=== PATIENT | female | born 1980 | race Caucasian/White ===

== ENCOUNTER 2019-12-06 09:57 | Outpatient (REF) | payer OTHER, SELFPAY | END 2019-12-06 09:58 | disposition home or self-care (01) | LOC: HO.LAB 09:57 | PROVIDERS: Visit Provider Internal Medicine | DX: Z20.828 Contact with and (suspected) exposure to other viral communicable diseases (principal) | CPT/HCPCS: 87635 ==

== ENCOUNTER 2019-12-14 07:51 | Outpatient (REF) | payer OTHER, SELFPAY | END 2019-12-14 07:52 | disposition home or self-care (01) | LOC: HO.LAB 07:51 | PROVIDERS: Visit Provider Internal Medicine | DX: Z20.828 Contact with and (suspected) exposure to other viral communicable diseases (principal) | CPT/HCPCS: C9803; U0003 ==

== ENCOUNTER 2020-08-24 10:28 | Emergency (ER) | payer OTHER, SELFPAY ==
--- NOTE | ~2020-08-24 | XR_ITS ---
EXAMINATION: XR CHEST CLINICAL INFORMATION: Chest pain COMPARISON: Chest x-ray 02/27/2015 TECHNIQUE: Frontal view of the chest was obtained. FINDINGS: The lungs are well-expanded and clear. The heart size and pulmonary vascularity is normal. No gross bony abnormality seen. XR/XR chest 1V IMPRESSION: Unremarkable chest exam.
[2020-08-24 10:50] VITALS: PULSE 69; RESP 16; TEMP 36.9; O2SAT 98; BMI 30.4
--- NOTE | 2020-08-24 11:00 | ED.CHESTPAIN ---
HPI - Chest Pain General Chief Complaint: Chest Pain Stated Complaint: Chest Pain Time Seen by Provider: 08/24/20 10:59 Source: patient Mode of arrival: ambulatory Limitations: no limitations History of Present Illness HPI narrative: 39 yo female no sig PMH not on OCPs here with L sided sharp chest pain that started around 7am this morning worse with movements, talking, deep breaths no prior episodes of this in the past MD complaint: chest pain Onset (ago): hour(s) (7am today) Timing of current episode: other (much improved) Onset: during rest Pain radiation: none Severity: moderate Quality: sharp Relieving factors: nothing Exacerbating factors: inspiration, palpation and movement Treatment prior to arrival: none Related Data Previous Rx's Medication Instructions Recorded ibuprofen 600 mg PO Q6H PRN #30 tab 08/24/20 Allergies Allergy/AdvReac Type Severity Reaction Status Date / Time amitriptyline [From ELAVIL] Allergy Intermediate SWELLING Unverified 10/27/19 15:58 Review of Systems Review of Systems: Constitutional : No Weight loss, No Fever, No Chills ENT/Mouth : No sore throat, No Rhinorrhea Eyes: No Eye Pain, No Swelling Cardiovascular : pos Chest Pain, no SOB, no Dyspnea on Exertion, No Orthopnea, No Edema, No Palpitations Respiratory : No Cough, No Sputum Gastrointestinal : no Nausea, No Vomiting, No Diarrhea, No abdominal Pain, No Hematochezia, No Melena Genitourinary : No Dysuria, No Urinary Frequency Musculoskeletal : No joint pain, No Myalgias, No Joint Swelling Skin : No Skin Lesions, No rash Neuro : No Weakness, No Numbness, No Dizziness, No Headache Psych : No Anxiety/Panic, No Depression Heme/Lymph: No Bruising, No Lymphadenopathy Endocrine : No Polyuria, No Polydipsia All other systems reviewed and are negative PMFSH Past Medical History Attestation statement: The following information was validated with the patient. Medical History COVID-19 Social History Social History (Updated 08/24/20 @ 11:26 by Jayleen Emmanuel DO) Alcohol intake: never Patient Tobacco Use Status: Never used Tobacco Advance Directives: No Advance Directives Information Provided: Yes Physical Exam Vital Signs: Vital Signs: Last Vital Signs Temp 98.2 F 08/24/20 13:29 Pulse 64 08/24/20 13:29 Resp 14 08/24/20 13:29 BP 107/59 L 08/24/20 13:29 Pulse Ox 98 08/24/20 13:29 Body Mass Index 30.4 Appearance: Alert. Oriented X3. No acute distress. Eyes: Pupils equal, round and reactive to light. ENT: Pharynx normal. Neck: Normal inspection. Neck supple. CVS: Normal heart rate and rhythm. Pulses normal. Chest: ttp along L sternal border Respiratory: No respiratory distress. Breath sounds normal. Abdomen: Soft and non-tender. Skin: Skin warm and dry. Normal skin color. Normal skin turgor. Extremities: No lower extremity edema. No calf ttp Neuro: Oriented X 3. No motor deficit. No sensory deficit. Course Course Course Narrative: repeat trop negative stable for DC MDM - Chest Pain MDM Narrative Medical decision making narrative: 39 yo female no sig PMH not on OCPs here with L sided sharp chest pain that started around 7am this morning worse with movements, talking, deep breaths no prior episodes of this in the past at this time she is PERC negative, HEART score 0, seems MSK in nature - labs, troponin x 1, CXR, EKG - dispo per results and findings. Lab Data Result diagrams: 08/24/20 11:21 08/24/20 11:21 Labs: Lab Results 08/24/20 08/24/20 08/24/20 Range/Units 11:21 11:21 11:21 WBC 6.8 (4.8-10.8) X10*3/uL RBC 5.36 (4.20-5.50) X10*6/uL Hgb 10.8 L (12.0-16.0) g/dl Hct 36.7 L (37-47) % MCV 68.5 L (80-98) fL MCH 20.1 L (27.0-33.0) pg MCHC 29.4 L (31.0-35.0) g/dl RDW 18.0 H (11.0-16.0) % Plt Count 204 (160-400) X10*3/uL MPV Not Reportable Immature Gran % (Auto) 0.3 (0.0-0.4) % Neut % (Auto) 67.0 (45-73) % Lymph % (Auto) 25.3 (20-40) % [place] % (Auto) 6.2 (2-11) % Eos % (Auto) 0.9 (0-4) % Baso % (Auto) 0.3 (0-2) % Lymph # (Auto) 1.7 (1.2-4.9) X10*3/uL [place] # (Auto) 0.4 (0.1-1.2) X10*3/uL Eos # (Auto) 0.1 (0.0-0.4) X10*3/uL Baso # (Auto) 0.0 (0.0-0.2) X10*3/uL Abs Immat Gran (auto) 0.02 (0.00-0.03) X10*3/uL Absolute Neuts (auto) 4.5 (2.0-8.3) X10*3/uL Absolute Nucleated RBC 0.000 (0.0-0.012) X10*3/uL Nucleated RBC % (auto) 0.0 (0.0-0.2) /100WBC D-Dimer NG/ML Sodium 139 (135-145) mmol/L Potassium 3.8 (3.3-5.1) mmol/L Chloride 108 (96-108) mmol/L Carbon Dioxide 26 (22-29) mmol/L Anion Gap 9 L (12-20) BUN 16 (9-16) mg/dL Creatinine 0.82 (0.5-1.4) mg/dL Estim Creat Clear Calc 98.9 Estimated GFR > 60 Random Glucose 84 (60-115) mg/dL Calcium 9.0 (8.4-10.2) mg/dL Magnesium 2.1 (1.6-2.6) mg/dL Total Bilirubin 0.5 (0.0-1.0) mg/dL Direct Bilirubin 0.2 (0.0-0.5) mg/dL AST 12 (5-31) U/L ALT 9 (0-31) U/L Alkaline Phosphatase 70 (39-117) U/L Troponin I High Sens < 3.5 (<3.5-17.0) ng/L Total Protein 7.5 (6.5-8.0) g/dL Albumin 4.2 (3.5-5.0) g/dL Lipase 16 (8-78) U/L 08/24/20 08/24/20 Range/Units 11:50 13:34 WBC (4.8-10.8) X10*3/uL RBC (4.20-5.50) X10*6/uL Hgb (12.0-16.0) g/dl Hct (37-47) % MCV (80-98) fL MCH (27.0-33.0) pg MCHC (31.0-35.0) g/dl RDW (11.0-16.0) % Plt Count (160-400) X10*3/uL MPV Immature Gran % (Auto) (0.0-0.4) % Neut % (Auto) (45-73) % Lymph % (Auto) (20-40) % [place] % (Auto) (2-11) % Eos % (Auto) (0-4) % Baso % (Auto) (0-2) % Lymph # (Auto) (1.2-4.9) X10*3/uL [place] # (Auto) (0.1-1.2) X10*3/uL Eos # (Auto) (0.0-0.4) X10*3/uL Baso # (Auto) (0.0-0.2) X10*3/uL Abs Immat Gran (auto) (0.00-0.03) X10*3/uL Absolute Neuts (auto) (2.0-8.3) X10*3/uL Absolute Nucleated RBC (0.0-0.012) X10*3/uL Nucleated RBC % (auto) (0.0-0.2) /100WBC D-Dimer < 200 NG/ML Sodium (135-145) mmol/L Potassium (3.3-5.1) mmol/L Chloride (96-108) mmol/L Carbon Dioxide (22-29) mmol/L Anion Gap (12-20) BUN (9-16) mg/dL Creatinine (0.5-1.4) mg/dL Estim Creat Clear Calc Estimated GFR Random Glucose (60-115) mg/dL Calcium (8.4-10.2) mg/dL Magnesium (1.6-2.6) mg/dL Total Bilirubin (0.0-1.0) mg/dL Direct Bilirubin (0.0-0.5) mg/dL AST (5-31) U/L ALT (0-31) U/L Alkaline Phosphatase (39-117) U/L Troponin I High Sens < 3.5 (<3.5-17.0) ng/L Total Protein (6.5-8.0) g/dL Albumin (3.5-5.0) g/dL Lipase (8-78) U/L ECG Data ECG #1: Attestation: I personally reviewed and interpreted this ECG as follows: ECG interpretation date: 08/24/20 ECG interpretation time: 11:51 Interpretation: Rate: 65 Rhythm: NSR [place]: normal Normal P waves. Normal CELIA. Normal QRS complex. ST T wave : inverted t waves V1-V3, no GILA qTC: normal prior studies: no acute ischemia The study has been interpreted contemporaneously by me. . Discharge Plan Discharge Clinical Impression: Chest pain Patient Disposition: Home, Self-Care Instructions: Chest Pain (ED), Costochondritis (ED) Additional Instructions: return to ED for any worsening symptoms or concerns Prescriptions: New ibuprofen 600 mg tablet 600 mg PO Q6H PRN (Reason: pain) Qty: 30 RF: 0 Referrals: Chuyita Love MD [Primary Care Provider] - 2 days (if not better) Stand Alone Forms: Work/School Release
--- NOTE | 2020-08-24 11:07 | ECG_ITS ---
Test Reason : CHEST PAIN Blood Pressure : / mmHG Vent. Rate : 065 BPM Atrial Rate : 065 BPM P-R Int : 168 ms QRS Dur : 080 ms QT Int : 394 ms P-R-T Axes : 022 040 010 degrees QTc Int : 409 ms Normal sinus rhythm Anterior T wave inversions - consider ischemia Abnormal ECG No previous ECGs available Referred By: Jayleen Emmanuel Electronically Signed By:Tal Wilson
[2020-08-24 11:27] LABS: MANUAL DIFF FLAG NO
[2020-08-24 11:31] LABS: Basophils Percent Auto 0.3 % (0-2); Eosinophils Absolute Auto 0.1 X10*3/uL (0.0-0.4); Eosinophils Percent Auto 0.9 % (0-4); Hematocrit 36.7 % (37-47); Hemoglobin 10.8 g/dl (12.0-16.0); Imm Gran Abs Auto 0.02 X10*3/uL (0.00-0.03); Imm Gran Pct Auto 0.3 % (0.0-0.4); Lymphocytes Absolute Auto 1.7 X10*3/uL (1.2-4.9); Lymphocytes Percent Auto 25.3 % (20-40); Mean Corpuscular HGB Conc 29.4 g/dl (31.0-35.0); Mean Corpuscular Hemoglobin 20.1 pg (27.0-33.0); Mean Corpuscular Volume 68.5 fL (80-98); Monocytes Absolute Auto 0.4 X10*3/uL (0.1-1.2); Monocytes Percent Auto 6.2 % (2-11); Neutrophils Absolute Auto 4.5 X10*3/uL (2.0-8.3); Platelet Count 204 X10*3/uL (160-400); Red Blood Count 5.36 X10*6/uL (4.20-5.50); White Blood Count 6.8 X10*3/uL (4.8-10.8)
[2020-08-24 11:43] VITALS: BP 97/61; PULSE 65; RESP 12; TEMP 36.7; O2SAT 98
[2020-08-24 11:55] LABS: Alanine Aminotransferase 9 U/L (0-31); Albumin Level 4.2 g/dL (3.5-5.0); Alkaline Phosphatase 70 U/L (39-117); Anion Gap 9 (12-20); Aspartate Amino Transferase 12 U/L (5-31); Bilirubin Direct 0.2 mg/dL (0.0-0.5); Bilirubin Total 0.5 mg/dL (0.0-1.0); Blood Urea Nitrogen 16 mg/dL (9-16); Carbon Dioxide 26 mmol/L (22-29); Chloride 108 mmol/L (96-108); Creatinine Clr Calc Pharmacy 98.9; Estimated Glomerular Filt Rate > 60; Glucose Random 84 mg/dL (60-115); Lipase 16 U/L (8-78); Magnesium 2.1 mg/dL (1.6-2.6); Potassium 3.8 mmol/L (3.3-5.1); Sodium 139 mmol/L (135-145); Total Protein 7.5 g/dL (6.5-8.0)
[2020-08-24 11:56] LABS: Troponin-I High Sensitivity < 3.5 ng/L (<3.5-17.0)
[2020-08-24 12:09] LABS: D Dimer < 200 NG/ML
[2020-08-24 13:29] VITALS: BP 107/59; PULSE 64; RESP 14; TEMP 36.8; O2SAT 98
[2020-08-24 14:12] LABS: Troponin-I High Sensitivity < 3.5 ng/L (<3.5-17.0)
== END 2020-08-24 14:57 | disposition home or self-care (01) ==
PROVIDERS: Emergency Provider Emergency Medicine; PCP Internal Medicine
DX: R07.9 Chest pain, unspecified (principal)
CPT/HCPCS: 36415; 71045; 80048; 80076; 83690; 83735; 84484; 85025; 85379; 93005; 99284

== ENCOUNTER 2021-03-17 17:34 | Emergency (ER) | payer OTHER, SELFPAY ==
--- NOTE | ~2021-03-17 | XR_ITS ---
EXAMINATION: XR PORTABLE CHEST CLINICAL INFORMATION: Chest pain. COMPARISON: 08/24/2020 TECHNIQUE: AP portable upright view of the chest FINDINGS: Lungs are clear. No consolidation, pneumothorax, or pleural effusion. Cardiac and mediastinal contours are normal. Pulmonary vasculature is unremarkable. Osseous structures are unremarkable. XR/XR chest 1V IMPRESSION: No acute cardiopulmonary findings
[2021-03-17 17:37] VITALS: BP 131/52; PULSE 70; RESP 18; TEMP 36.9; O2SAT 99; BMI 30.7
--- NOTE | 2021-03-17 17:42 | ECG_ITS ---
Test Reason : DYSPNEA Blood Pressure : / mmHG Vent. Rate : 078 BPM Atrial Rate : 078 BPM P-R Int : 160 ms QRS Dur : 084 ms QT Int : 376 ms P-R-T Axes : 061 069 033 degrees QTc Int : 428 ms Normal sinus rhythm T wave abnormality, consider anterior ischemia Abnormal ECG When compared with ECG of 24-AUG-2020 11:41, No significant change was found Referred By: Generic ED Physician Electronically Signed By:Tal Wilson
--- NOTE | 2021-03-17 18:13 | ED_ITS ---
HPI - Chest Pain General Chief Complaint: Dyspnea Stated Complaint: [facility] sent pt over Time Seen by Provider: 03/17/21 18:01 History of Present Illness HPI narrative: 40-year-old female presents today with coughing upper respiratory symptoms that is been ongoing for approximately 1 week. Patient had coded approximately 1 month ago. No fever no chills no diaphoresis. Been on steroid and also on a Z- Mikael right now. Complaining of some chest pain as mid chest. Patient had an EKG done at the urgent care found that patient had T-wave inversions. Patient was sent to the emergency department for further evaluation. No history of diabetes, hypertension, high cholesterol. No history of smoking. Never had a heart attack. No family history of coronary artery disease. No leg swelling. Not on control. No history of blood clots in the past. No history of cancer. The pain has been constant since yesterday. Not associated with shortness of breath that is new. Not associated with diaphoresis. Related Data Previous Rx's Medication Instructions Recorded ibuprofen 600 mg tablet 600 mg PO Q6H PRN #30 tab 08/24/20 Allergies Allergy/AdvReac Type Severity Reaction Status Date / Time amitriptyline [From Allergy Intermediate SWELLING Unverified 10/27/19 15:58 ELAVIL] Review of Systems Verdana 4l Review of Systems: Verdana 4d No fever no chills No new Verdana 4d shortness of breath Positive cough upper respiratory symptoms Previous history of COVID about a month ago All system reviewed otherwise negative Verdana 4d Yes all other systems are reviewed and are negative [facility] Past Medical History Medical History COVID-19 Social History Social History (Updated 08/24/20 @ 11:26 by Jayleen Emmanuel DO) Alcohol intake: never Patient Tobacco Use Status: Never used Tobacco Use of substances other than those prescribed or required for medical reasons: No Advance Directives: No Advance Directives Information Provided: No Patient : No Physical Exam Verdana 4l Vital Signs: Verdana 4d Verdana 4d Vital Signs: Verdana 4d Verdana 4Bd Last Vital Signs Verdana 4d [employer]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 Oriented X3. No acute distress. Eyes: Pupils equal, round and reactive to light. ENT: Pharynx normal. Neck: Normal inspection. Neck supple. No lymph nodes noted. No crepitus CVS: Normal heart rate and rhythm. Pulses normal. Normal S1 and S2 Respiratory: No respiratory distress. Breath sounds normal. No Wheezing. No rales Abdomen: Soft and nontender. No rigidity. No distention. good BS x4 Skin: Skin warm and dry. Normal skin color. Normal skin turgor. Extremities: No lower extremity edema. Neurovascular intact to all extremities. No Lacerations. No Rash Neuro: Oriented X 3. No motor deficit. No sensory deficit. Moving all extermities. No slurred speech MDM - Chest Pain MDM Narrative Medical decision making narrative: Patient's EKG showed a sinus pattern heart rate is 80 TX QRS QTC within normal limits there is T-wave inversion noted in the anterior lead. This is old compared to an EKG about a month ago. Patient's chest pain is atypical for ACS. Has no cardiac risk factor he is 40 years old. The pain has been constant since yesterday. Will get 1 set of cardiac enzymes are negative ACS is unlikely. Patient's heart score is less than 3. Chest x-ray pending. A COVID test was not done as patient had positive COVID only a month ago. She did receive a coronavirus vaccine. Patient's troponin was negative. Patient's sugar was 170. However patient stated that she just had a sandwich and also a few sips of soda. Question secondary to that. Will have patient follow-up on an outpatient basis. In stable condition. Medical Records Data Attestation: I reviewed the patient's medical records. Lab Data Attestation: I reviewed the patient's lab results. Result diagrams: 03/17/21 19:22 03/17/21 19:22 Labs: Lab Results 03/17/21 03/17/21 03/17/21 Range/Units 19:22 19:22 19:22 WBC 9.1 (4.8-10.8) X10*3/uL RBC 4.98 (4.20-5.50) X10*6/uL Hgb 10.5 L (12.0-16.0) g/dl Hct 34.2 L (37.0-47.0) % MCV 68.7 L (80.0-98.0) fL MCH 21.1 L (27.0-33.0) pg MCHC 30.7 L (31.0-35.0) g/dl RDW 16.6 H (11.0-16.0) % Plt Count 217 (160-400) X10*3/uL MPV 11.2 (9.4-12.3) fL Absolute Nucleated RBC 0.000 (0.0-0.012) X10*3/uL Nucleated RBC % (auto) 0.0 (0.0-0.2) /100WBC Sodium 139 (135-145) mmol/L Potassium 3.7 (3.3-5.1) mmol/L Chloride 107 (96-108) mmol/L Carbon Dioxide 25 (22-29) mmol/L Anion Gap 11 L (12-20) BUN 13 (9-16) mg/dL Creatinine 0.87 (0.5-1.4) mg/dL Estim Creat Clear Calc 92.8 Estimated GFR > 60 Random Glucose 179 H (60-115) mg/dL Calcium 8.8 (8.4-10.2) mg/dL Troponin I High Sens < 3.5 (<3.5-17.0) ng/L Discharge Plan Discharge Clinical Impression: Bronchitis Patient Disposition: Home, Self-Care Instructions: Acute Bronchitis (ED) Prescriptions: No Action ibuprofen 600 mg tablet 600 mg PO Q6H PRN (Reason: pain) Qty: 30 0RF Referrals: Chuyita Love MD [Primary Care Provider] - 2 days
[2021-03-17 18:14] VITALS: BP 120/57; PULSE 80; RESP 16; TEMP 37; O2SAT 96
--- NOTE | 2021-03-17 19:20 | PC.NURSE ---
Assumed care of pt. Pt resting, in NAD, resps even and non-labored. Full workup still pending
[2021-03-17 19:36] VITALS: BP 114/63; PULSE 79; RESP 18; TEMP 36.9; O2SAT 97
[2021-03-17 19:37] LABS: Hematocrit 34.2 % (37.0-47.0); Hemoglobin 10.5 g/dl (12.0-16.0); Mean Corpuscular HGB Conc 30.7 g/dl (31.0-35.0); Mean Corpuscular Hemoglobin 21.1 pg (27.0-33.0); Mean Corpuscular Volume 68.7 fL (80.0-98.0); Mean Platelet Volume 11.2 fL (9.4-12.3); Platelet Count 217 X10*3/uL (160-400); Red Blood Count 4.98 X10*6/uL (4.20-5.50); Red Cell Distribution Width 16.6 % (11.0-16.0); White Blood Count 9.1 X10*3/uL (4.8-10.8)
[2021-03-17 19:40] LABS: Anion Gap 11 (12-20); Blood Urea Nitrogen 13 mg/dL (9-16); Calcium 8.8 mg/dL (8.4-10.2); Carbon Dioxide 25 mmol/L (22-29); Chloride 107 mmol/L (96-108); Creatinine Clr Calc Pharmacy 92.8; Estimated Glomerular Filt Rate > 60; Glucose Random 179 mg/dL (60-115); Potassium 3.7 mmol/L (3.3-5.1); Sodium 139 mmol/L (135-145)
[2021-03-17 19:45] LABS: Troponin-I High Sensitivity < 3.5 ng/L (<3.5-17.0)
== END 2021-03-17 20:34 | disposition home or self-care (01) ==
PROVIDERS: Emergency Provider Emergency Medicine Emergency Medical Services; PCP Internal Medicine
DX: J40 Bronchitis, not specified as acute or chronic (principal); R06.02 Shortness of breath; Z79.899 Other long term (current) drug therapy
CPT/HCPCS: 36415; 71045; 80048; 84484; 85027; 93005; 99284

== ENCOUNTER 2021-08-26 10:56 | Outpatient (REF) | payer OTHER, SELFPAY ==
[2021-08-26 14:00] LABS: SCAN SMEAR FLAG 1
[2021-08-26 14:02] LABS: Basophils Percent Auto 0.3 % (0-2); Eosinophils Absolute Auto 0.1 X10*3/uL (0.0-0.4); Eosinophils Percent Auto 1.1 % (0-4); Hematocrit 37.3 % (37.0-47.0); Hemoglobin 10.9 g/dl (12.0-16.0); Imm Gran Abs Auto 0.01 X10*3/uL (0.00-0.03); Imm Gran Pct Auto 0.2 % (0.0-0.4); Lymphocytes Absolute Auto 1.4 X10*3/uL (1.2-4.9); Lymphocytes Percent Auto 22.2 % (20-40); Mean Corpuscular HGB Conc 29.2 g/dl (31.0-35.0); Mean Corpuscular Volume 68.4 fL (80.0-98.0); Mean Platelet Volume 11.7 fL (9.4-12.3); Monocytes Absolute Auto 0.4 X10*3/uL (0.1-1.2); Monocytes Percent Auto 5.6 % (2-11); Neutrophils Absolute Auto 4.6 x10*3/uL (2.0-8.3); Neutrophils Percent Auto 70.6 % (45-73); Platelet Count 220 X10*3/uL (160-400); Red Blood Count 5.45 X10*6/uL (4.20-5.50); Red Cell Distribution Width 17.7 % (11.0-16.0); White Blood Count 6.5 X10*3/uL (4.8-10.8)
[2021-08-26 14:07] LABS: C Reactive Protein 0.26 mg/dL (< or = 0.50)
[2021-08-26 14:30] LABS: MANUAL DIFF FLAG NO; PLT ABN DIST 1
[2021-08-26 14:46] LABS: TSH reflex Free T4 1.34 uIU/mL (0.32-4.0)
[2021-08-26 14:58] LABS: Erythrocyte Sedimentation Rate 6 MM/HR (0-20)
== END 2021-08-26 10:57 | disposition home or self-care (01) ==
LOC: HO.10HDL 10:56
PROVIDERS: Visit Provider Internal Medicine Rheumatology
DX: M79.7 Fibromyalgia (principal); F41.9 Anxiety disorder, unspecified; R20.0 Anesthesia of skin; F32.A Depression, unspecified; R63.5 Abnormal weight gain; Z79.899 Other long term (current) drug therapy
CPT/HCPCS: 36415; 84443; 85025; 85652; 86140; 99212

== ENCOUNTER 2022-08-28 13:34 | Emergency (ER) | payer OTHER, SELFPAY ==
--- NOTE | ~2022-08-28 | CT_ITS ---
EXAMINATION: CT CERVICAL SPINE WITHOUT CONTRAST CLINICAL INFORMATION: Trauma, pain. COMPARISON: No similar priors. TECHNIQUE: Contiguous axial imaging was performed of the cervical spine without intravenous administration of contrast. Coronal and sagittal reformats were obtained at the acquisition workstation. This CT examination was performed using dose optimization techniques as appropriate, variously including the following: *Automated exposure control *Adjustment of mA and/or kV according to patient size (this includes techniques or standardized protocols for targeted exams where dose is matched to indication/reason for exam; i.e. extremities or head) *Use of iterative reconstruction technique DLP: 337 mGy-cm FINDINGS: The atlantooccipital and atlantoaxial articulations remain well aligned. Straightening of the normal cervical lordosis. Otherwise, there is anatomic alignment of the vertebral bodies and posterior elements. No evidence of acute fracture or subluxation. Mild multilevel cervical spondylosis. There is no prevertebral soft tissue swelling. The thyroid gland and remaining cervical soft tissues are normal in appearance. The lung apices demonstrate no abnormalities. CT/CT cervical spine wo IV con IMPRESSION: No acute cervical spinal fracture or traumatic subluxation. Mild multilevel cervical spondylosis.
--- NOTE | ~2022-08-28 | CT_ITS ---
EXAMINATION: CT HEAD WITHOUT CONTRAST CLINICAL INFORMATION: Head trauma. COMPARISON: 04/22/2008 TECHNIQUE: Contiguous axial imaging was performed from the skull base to vertex without intravenous administration of contrast. This CT examination was performed using dose optimization techniques as appropriate, variously including the following: *Automated exposure control *Adjustment of mA and/or kV according to patient size (this includes techniques or standardized protocols for targeted exams where dose is matched to indication/reason for exam; i.e. extremities or head) *Use of iterative reconstruction technique DLP: 620 mGy-cm FINDINGS: There is no evidence of acute intracranial hemorrhage or territorial infarction. No mass effect or midline shift is seen. Spann to white matter differentiation is well preserved. No extra-axial fluid collections are identified. No hydrocephalus. The calvarium is intact. The mastoid air cells and visualized portions of the paranasal sinuses are well aerated. CT/CT head/brain wo IV con IMPRESSION: No acute intracranial pathology.
[2022-08-28 14:17] VITALS: BP 109/60; PULSE 76; RESP 18; TEMP 36.6; O2SAT 98; BMI 31.3
--- NOTE | 2022-08-28 14:19 | ED_ITS ---
HPI - General Adult General Chief complaint: Head Injury Stated complaint: Lump on Head S/P Fall Time Seen by Provider: 08/28/22 14:36 Source: patient and family Mode of arrival: ambulatory Limitations: no limitations History of Present Illness HPI narrative: 41-year-old female presenting to the ER with complaints headache, blurry vision, nausea after she had an head injury with a branch while she was tending to her chickens. She reports this occurred yesterday. She did not lose consciousness and did not have any symptoms prior to the head injury. She did not actually fall down to the ground. She denies being on any blood thinners. She denies any other injuries complaints or concerns at this time. MD complaint: head injury and neck injury Onset (ago): day(s) (yesterday) Related Data Home Medications Medication Instructions Recorded Confirmed acetaminophen 500 mg tablet 500 mg PO Q6H PRN 08/26/21 08/26/21 (Tylenol Extra Strength) cetirizine 10 mg capsule (All Day 10 mg PO DAILY 08/26/21 08/26/21 Allergy (cetirizine)) cholecalciferol (vitamin D3) 25 25 mcg PO DAILY 08/26/21 08/26/21 mcg (1,000 unit) capsule ferrous sulfate 325 mg (65 mg 325 mg PO DAILY 08/26/21 08/26/21 iron) tablet fluticasone 100 mcg-salmeterol 50 1 inh inhalation Q12H 08/26/21 08/26/21 mcg/dose blistr powdr for inhalation (Advair Diskus) fluticasone propionate 50 2 spray intranasal DAILY 08/26/21 08/26/21 mcg/actuation nasal spray,suspension (Allergy Relief (fluticasone)) ibuprofen 800 mg tablet 800 mg PO Q8H PRN 08/26/21 08/26/21 omeprazole 20 mg capsule,delayed 20 mg PO DAILY 08/26/21 08/26/21 release pregabalin 150 mg capsule (Lyrica) 150 mg PO BID 08/26/21 08/26/21 sertraline 100 mg tablet 100 mg PO DAILY 08/26/21 08/26/21 Previous Rx's Medication Instructions Recorded acetaminophen 500 mg tablet 1,000 mg PO QID PRN fever or pain 08/28/22 (Tylenol Extra Strength) #14 tabs cyclobenzaprine 10 mg tablet 10 mg PO Q8H #14 tabs 08/28/22 ondansetron HCl 4 mg tablet 4 mg PO Q8H #14 tabs 08/28/22 Allergies Allergy/AdvReac Type Severity Reaction Status Date / Time amitriptyline [From ELAVIL] Allergy Intermediate SWELLING Verified 08/28/22 14:16 Review of Systems Review of Systems: Constitutional : No Weight loss, No Fever, No Chills, No Night Sweats, No Fatigue, No Malaise ENT/Mouth : No Hearing loss, No Ear Pain, No Nasal Congestion, No Sinus Pain, No Hoarseness, No sore throat, No Rhinorrhea, No Swallowing Difficulty Eyes: + blurry vision, No Eye Pain, No Swelling, No Redness, No Foreign Body, No Discharge, Cardiovascular : No Chest Pain, No SOB, No Dyspnea on Exertion, No Orthopnea, No Edema, No Palpitations Respiratory : No Cough, No Sputum, No Wheezing, No Smoke Exposure, No Dyspnea Gastrointestinal : + Nausea, No Vomiting, No Diarrhea, No Constipation, No abdominal Pain, No Hematochezia, No Melena Genitourinary : no irregular bleeding, No Dysuria, No Urinary Frequency, No Hematuria, No Urinary Incontinence, No Urgency, No Flank Pain, No Urinary Flow Changes, No Hesitancy Musculoskeletal : + neck pain, No joint pain, No Myalgias, No Joint Swelling Skin : No Skin Lesions, No rash Neuro : No Weakness, No Numbness, No Paresthesias, No Loss of Consciousness, No Dizziness, + Headache Status post head injury Psych : No Anxiety/Panic, No Depression, No SI/HI/AH/VH, No Social Issues, Heme/Lymph: No Bruising, No Bleeding,No Lymphadenopathy Endocrine : No Polyuria, No Polydipsia, No Temperature Intolerance Yes all other systems are reviewed and are negative [facility] Past Medical History Attestation statement: The following information was validated with the patient. Source: old records reviewed, obtained from family and nursing notes reviewed Medical History COVID-19 Social History Social History Household Members: Spouse and Family Housing: Apartment Are you a primary healthcare facility administrator to a significant other at home: No Do you presently have visiting nurse or other home services: No Alcohol intake: never Patient Tobacco Use Status: Never used Tobacco e-Cigarette/Vaping Use: Never Used Advance Directives: No service: No Current occupational status: employed Current occupation: Paraprofessional Physical Exam ED Vital Signs: Vital Signs - 24 hr 08/28/22 14:17 Temperature 97.8 F Pulse Rate 76 Respiratory Rate 18 Blood Pressure 109/60 Pulse Oximetry 98 Oxygen Delivery Method Room Air BMI result Body Mass Index 31.3 vital signs have been reviewed as normal and appeared to be correct. Blood pressure normal. Heart rate normal. Respiration rate normal. Temperature normal. Oxygen saturation normal. Appearance: Alert. Oriented X3. No acute distress. Head: patient mild ecchymoses/ soft tissue swelling to forehead area. The rest of the external exam is within normal limits no other signs of trauma.Normocephalic. Atraumatic. No Cullen signs noted. No raccoon eyes noted Eyes: PERRLA. EOMI. Conjunctiva and sclera normal. Eyelids normal. ENT: EAC normal. TM's Normal. No septal hematoma noted. No hemotympanum noted. Pharynx normal. Uvula midline. Moist mucous membranes. No lesions/ulcerations or masses noted on the tongue. Normal voice. No trismus noted. No drooling noted. No muffled voice noted. Neck: Normal inspection. Neck supple. FROM. No adenopathy. Thyroid Normal. No tracheal deviation noted. No crepitus is noted. No meningeal signs. No neck mass noted. No signs of trauma noted. Patient mild tenderness palpation to right paracervical musculature. No step-offs or deformities noted. CVS: Normal heart rate and rhythm. Heart sound normal. Pulses normal throughout. No murmurs/rales/gallops. Respiratory: No respiratory distress. Painless inspiration. Breath sounds normal. No wheezes/rales/rhonchi noted. Chest nontender. No crepitus is noted. No signs of trauma noted. No accessory muscle usage noted or decreased air movement noted. No signs of trauma. Abdomen: Soft and nontender. Bowel sounds normal in all 4 quadrants. No distention noted. No organomegaly noted. No visible injury noted. Back: No CVA tenderness. Full range of motion noted. Nontender. No signs of trauma. Patient neuro intact bilaterally and distally on all 4 extremities. Patient's reflexes intact bilaterally and distally on all 4 extremities. No rashes/lesion/induration/fluctuance or signs of infection noted. Skin: Skin warm and dry. Normal skin color. Normal skin turgor. No rashes/lesions/lacerations noted. Extremities: No lower extremity edema. No calf tenderness is noted. Extremities exhibit normal range of motion and nontender. Neuro: Oriented X 3. No motor deficit. No sensory deficit. Reflexes normal. Normal steady gait. No focal neuro deficits noted. CN's II-XII intact bilaterally? Vascular: + radial pulses/+ 2 distal pedal pulses/+2 dorsalis pedis b/l. Normal cap refill. No cyanosis noted to upper extremity nails and lower extremity toes nails. Course Course Course Narrative: This is an RME: Additional HPI, ROS, PE not included below will be deferred to primary provider. 41-year-old female presenting to the emergency department for evaluation of headache since yesterday. Patient reports that a branch struck the left side of her head yesterday. She is endorsing left-sided blurred vision double vision headache. She has been taking Tylenol, which has provided her without any relief. Patient ambulatory. No neurologic deficits on examination. Will be seen in main ER. No midline cervical spine tenderness on examination. Plan: CT head. Reevaluation(s) Reevaluation #1: CT head and neck negative for any acute processes. Patient was given nausea medication and oxycodone reports he feels much better. No additional labs or imaging indicated. Not consistent with CVA; subarachnoid hemorrhage; fractures. Patient most likely concussion. Will DC home with symptomatic treatment instructions return if any new or worsening symptoms follow up with primary care provider. Patient at bedside understand agree this plan. Medications Administered Discontinued Medications Generic Name Dose Route Start Last Admin Trade Name Freq PRN Reason Stop Dose Admin Ondansetron HCl 4 mg 08/28/22 15:00 08/28/22 15:27 Ondansetron Odt 4 Mg Tab.Rapdis TRANSLINGU 08/28/22 15:01 4 mg ONCE ONE Administration Oxycodone HCl 5 mg 08/28/22 15:00 08/28/22 15:25 Oxycodone Hcl Immed Release 5 Mg Tablet PO 08/28/22 15:01 5 mg ONCE ONE Administration Medical Decision Making Medical Decision Making [facility] Narrative: see course Differential Diagnosis Differential Diagnoses: The differential diagnosis associated with the presentation includes see course Independent Interpretation I performed an independent interpretation of an: CT Scan Interpretation: CT scan of brain / cervical spine reviewed by myself this is my independent interpretation agreeable with radiology report no acute findings Radiology Impression Discussion of test interpretation with radiology: I have reviewed the radiologist's reading. Radiologist Impression: FINDINGS: The atlantooccipital and atlantoaxial articulations remain well aligned. Straightening of the normal cervical lordosis. Otherwise, there is anatomic alignment of the vertebral bodies and posterior elements. No evidence of acute fracture or subluxation. Mild multilevel cervical spondylosis. There is no prevertebral soft tissue swelling. The thyroid gland and remaining cervical soft tissues are normal in appearance. The lung apices demonstrate no abnormalities. CT/CT cervical spine wo IV con IMPRESSION: No acute cervical spinal fracture or traumatic subluxation. Mild multilevel cervical spondylosis. FINDINGS: There is no evidence of acute intracranial hemorrhage or territorial infarction. No mass effect or midline shift is seen. Spann to white matter differentiation is well preserved. No extra-axial fluid collections are identified. No hydrocephalus. The calvarium is intact. The mastoid air cells and visualized portions of the paranasal sinuses are well aerated. ? CT/CT head/brain wo IV con IMPRESSION: No acute intracranial pathology. Independent Historian Clinical information obtained from an independent historian. History obtained from or confirmed by: Spouse External Record Review External record reviewed: Inpatient record, Office record, Outpatient record, Prior outpatient labs, Prior outpatient radiology, Primary care record and Outside ED record all prior lab/imaging /EKG and notes that are accessible in our system reviewed by myself Prescription Management I considered prescription management with: Pain Medication Discharge Plan Discharge Clinical Impression: Head injury, Concussion, Cervical strain Patient Disposition: Home, Self-Care Instructions: Cervical Strain (DC), Concussion (ED), Head Injury (ED) Prescriptions: New cyclobenzaprine 10 mg tablet 10 mg PO Q8H Qty: 14 0RF acetaminophen [Tylenol Extra Strength] 500 mg tablet 1,000 mg PO QID PRN (Reason: fever or pain) Qty: 14 0RF ondansetron HCl 4 mg tablet 4 mg PO Q8H Qty: 14 0RF No Action pregabalin [Lyrica] 150 mg capsule 150 mg PO BID ibuprofen 800 mg tablet 800 mg PO Q8H PRN acetaminophen [Tylenol Extra Strength] 500 mg tablet 500 mg PO Q6H PRN fluticasone propion-salmeterol [Advair Diskus] 100-50 mcg/dose blister with device 1 inh inhalation Q12H omeprazole 20 mg capsule,delayed release(DR/EC) 20 mg PO DAILY fluticasone propionate [Allergy Relief (fluticasone)] 50 mcg/actuation spray,suspension 2 spray intranasal DAILY Rx Instructions: administer into each nostril All Day Allergy (cetirizine) 10 mg capsule 10 mg PO DAILY sertraline 100 mg tablet 100 mg PO DAILY cholecalciferol (vitamin D3) 25 mcg (1,000 unit) capsule 25 mcg PO DAILY ferrous sulfate 325 mg (65 mg iron) tablet 325 mg PO DAILY Referrals: Chuyita Love MD [Primary Care Provider] - 2 days Stand Alone Forms: Work/School Release Interventions: ED Discharge Assessment Last Done: 08/28/22 17:37 Discharge Date/Time: 08/28/22 17:37 Print Language: Mexican
[2022-08-28] MEDS: oxyCODONE HCl Immed Release 5 MG TABLET PO (15:25)
[2022-08-28] MEDS: Ondansetron ODT 4 MG TAB.RAPDIS TRANSLINGU (15:27)
== END 2022-08-28 17:37 | disposition home or self-care (01) ==
PROVIDERS: Emergency Provider Emergency Medicine; PCP Internal Medicine
DX: S06.0X0A Concussion without loss of consciousness, initial encounter (principal); S16.1XXA Strain of muscle, fascia and tendon at neck level, initial encounter; W22.8XXA Striking against or struck by other objects, initial encounter; Y93.89 Activity, other specified; Y92.72 Chicken coop as the place of occurrence of the external cause; Y99.9 Unspecified external cause status
CPT/HCPCS: 70450; 72125; 99283; 99284

== ENCOUNTER 2023-03-25 23:43 | Emergency (ER) | payer OTHER, SELFPAY ==
--- NOTE | ~2023-03-25 | XR_ITS ---
EXAMINATION: XR CHEST CLINICAL INFORMATION: Chest pain. COMPARISON: 03/17/2021. TECHNIQUE: Frontal view of the chest was obtained. FINDINGS: No significant abnormality is noted involving the heart, lungs, mediastinum, bony thorax or soft tissues. XR/XR chest 1V IMPRESSION: Unremarkable examination.
[2023-03-25 23:49] VITALS: BP 122/80; PULSE 62; O2SAT 99
[2023-03-25 23:55] VITALS: BMI 31.1
[2023-03-26 00:32] VITALS: BP 117/69; PULSE 69; RESP 12; TEMP 36.7; O2SAT 98
--- NOTE | 2023-03-26 01:17 | ED_ITS ---
HPI - General Adult General Chief complaint: Dizziness Stated complaint: Abdominal Pain/Dizziness Time Seen by Provider: 03/26/23 00:56 History of Present Illness HPI narrative: The patient is a 42-year-old woman who started to feel unwell 4 days ago on Thursday evening when she developed a headache. She continued to have a headache on Thursday and felt run down. She took a home COVID test that was positive. The next day on Thursday she went to an urgent care where she had a confirmatory COVID test and was prescribed Paxlovid. She also developed a runny nose and sore throat and a cough. This morning (Thursday morning) she started to have chest pain and this evening she started to feel lightheaded as if he might pass out and ultimately called an ambulance tonight and was brought to the emergency room. She does not know if she has had a fever. No nausea or vomiting. She says that she feels lightheaded. She does not feel any sense of room spinning. She says the lightheadedness feels like she might pass out. She is here with her 2 teenage daughters. 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 Related Data Home Medications Medication Instructions Recorded Confirmed acetaminophen 500 mg tablet 500 mg PO Q6H PRN 08/26/21 08/26/21 (Tylenol Extra Strength) cetirizine 10 mg capsule (All Day 10 mg PO DAILY 08/26/21 08/26/21 Allergy (cetirizine)) cholecalciferol (vitamin D3) 25 25 mcg PO DAILY 08/26/21 08/26/21 mcg (1,000 unit) capsule ferrous sulfate 325 mg (65 mg 325 mg PO DAILY 08/26/21 08/26/21 iron) tablet fluticasone 100 mcg-salmeterol 50 1 inh inhalation Q12H 08/26/21 08/26/21 mcg/dose blistr powdr for inhalation (Advair Diskus) fluticasone propionate 50 2 spray intranasal DAILY 08/26/21 08/26/21 mcg/actuation nasal spray,suspension (Allergy Relief (fluticasone)) ibuprofen 800 mg tablet 800 mg PO Q8H PRN 08/26/21 08/26/21 omeprazole 20 mg capsule,delayed 20 mg PO DAILY 08/26/21 08/26/21 release pregabalin 150 mg capsule (Lyrica) 150 mg PO BID 08/26/21 08/26/21 sertraline 100 mg tablet 100 mg PO DAILY 08/26/21 08/26/21 Previous Rx's Medication Instructions Recorded acetaminophen 500 mg tablet 1,000 mg (2 x 500 mg) PO QID PRN 08/28/22 (Tylenol Extra Strength) fever or pain #14 tabs cyclobenzaprine 10 mg tablet 10 mg PO Q8H #14 tabs 08/28/22 ondansetron HCl 4 mg tablet 4 mg PO Q8H #14 tabs 08/28/22 Allergies Allergy/AdvReac Type Severity Reaction Status Date / Time amitriptyline [From ELAVIL] Allergy Intermediate SWELLING Verified 03/26/23 00:05 Review of Systems 2 Review of Systems: Yes all other systems are reviewed and are negative PMFSH Past Medical History Medical History COVID-19 Social History Social History Household Members: Spouse and Family Housing: Apartment Are you a primary director long term care to a significant other at home: No Do you presently have visiting nurse or other home services: No Alcohol intake: never Patient Tobacco Use Status: Never used Tobacco e-Cigarette/Vaping Use: Never Used Advance Directives: No Advance Directives Information Provided: Yes service: No Current occupational status: employed Current occupation: Paraprofessional Physical Exam ED Vital Signs: Vital Signs - 24 hr 03/26/23 00:32 03/26/23 04:00 Temperature 98.1 F Pulse Rate 69 60 Respiratory Rate 12 16 Blood Pressure 117/69 105/64 Pulse Oximetry 98 98 Oxygen Delivery Method Room Air Room Air BMI result Body Mass Index 31.1 Const Other: The patient is awake and alert. She looks fatigued but not acutely toxic. HENMT Other: Face is symmetrical, mucous membranes moist Eyes Other: Pupils are round equal, conjunctivae are clear, extraocular movements intact Neck Other: Neck is supple, no JVD Resp Effort & Inspection: normal respiratory effort Auscultation: clear to auscultation bilaterally Cardio Rate: regular rate Rhythm: regular rhythm Heart sounds: S1 normal heart sound present and S2 normal heart sound present GI Other: Abdomen is soft and nontender Skin Other: Skin is dry and unremarkable Neuro Other: The patient is awake and alert. She looks fatigued. Mental status is clear. Face is symmetrical. Eye movements intact. She moves her extremities symmetrically. She seems grossly neurologically intact. Extrem Other: No calf swelling or tenderness. No peripheral edema. Medications Administered Discontinued Medications Generic Name Dose Route Start Last Admin Trade Name Kelsey PRN Reason Stop Dose Admin Acetaminophen 975 mg 03/26/23 03:49 03/26/23 03:59 Acetaminophen 325 Mg Tablet PO 03/26/23 03:50 975 mg ONCE ONE Administration Ibuprofen 600 mg 03/26/23 03:49 03/26/23 03:59 Ibuprofen 600 Mg Tablet PO 03/26/23 03:50 600 mg ONCE ONE Administration Medical Decision Making Medical Decision Making [facility] Narrative: The patient is a 42-year-old female who presents with 4 days of symptoms in the setting of being COVID positive. She started Paxlovid 2 days ago. She says that she felt very lightheaded (she said dizzy originally but denies any room spinning sensations, she says that she feels lightheaded as if she might pass out). Clinically she looks well although she looks fatigued. Vital signs are unremarkable. Her daughters implies she has under a lot of stress. Your testing in the emergency room is largely reassuring. She has a negative chest x-ray. Her D-dimer is undetectable. CBC is unremarkable. She is mildly anemic but she has been mildly anemic in the past. Her metabolic panel is unremarkable. Overall the patient is presentation seems fairly benign. I suspect that her symptoms are either COVID related or may be related to the stress of being ill while having a lot of responsibility. In any event I think she is medically safe for discharge to continue her Paxlovid in isolation at home. Lab Data 03/26/23 02:39 03/26/23 02:39 Labs: Lab Results 03/26/23 Range/Units 02:39 WBC 6.5 (4.8-10.8) X10*3/uL RBC 4.95 (4.20-5.50) X10*6/uL Hgb 9.9 L (12.0-16.0) g/dl Hct 33.0 L (37.0-47.0) % MCV 66.7 L (80.0-98.0) fL MCH 20.0 L (27.0-33.0) pg MCHC 30.0 L (31.0-35.0) g/dl RDW 17.0 H (11.0-16.0) % Plt Count 184 (160-400) X10*3/uL MPV 10.7 (9.4-12.3) fL Immature Gran % (Auto) 0.2 (0.0-0.4) % Neut % (Auto) 68.4 (45-73) % Lymph % (Auto) 24.2 (20-40) % Orange % (Auto) 5.5 (2-11) % Eos % (Auto) 1.4 (0-4) % Baso % (Auto) 0.3 (0-2) % Lymph # (Auto) 1.6 (1.2-4.9) X10*3/uL Orange # (Auto) 0.4 (0.1-1.2) X10*3/uL Eos # (Auto) 0.1 (0.0-0.4) X10*3/uL Baso # (Auto) 0.0 (0.0-0.2) X10*3/uL Abs Immat Gran (auto) 0.01 (0.00-0.03) X10*3/uL Absolute Neuts (auto) 4.5 (2.0-8.3) x10*3/uL Absolute Nucleated RBC 0.000 (0.0-0.012) X10*3/uL Nucleated RBC % (auto) 0.0 (0.0-0.2) /100WBC D-Dimer High Sensitivty < 150 NG/ML Sodium 140 (135-145) mmol/L Potassium 3.7 (3.3-5.1) mmol/L Chloride 107 (96-108) mmol/L Carbon Dioxide 24 (22-29) mmol/L Anion Gap 13 (12-20) BUN 13 (9-16) mg/dL Creatinine 0.77 (0.5-1.4) mg/dL Estim Creat Clear Calc 103.4 Estimated GFR > 60 Random Glucose 104 (60-115) mg/dL Calcium 8.5 (8.4-10.2) mg/dL Total Bilirubin 0.2 (0.0-1.0) mg/dL Direct Bilirubin < 0.2 (0.0-0.5) mg/dL AST 13 (5-31) U/L ALT 15 (0-31) U/L Alkaline Phosphatase 66 (39-117) U/L Troponin I High Sens < 2.7 (<3.5-17.0) ng/L C-Reactive Protein 0.52 H (< or = 0.50) mg/dL Total Protein 7.1 (6.5-8.0) g/dL Albumin 3.8 (3.5-5.0) g/dL Beta HCG, Quant < 2 mIU/mL Discharge Plan Discharge Clinical Impression: Lightheadedness, Chest pain, COVID Patient Disposition: Home, Self-Care Additional Instructions: Your testing today is very reassuring from the point of view of any acutely dangerous process. Please do your best to try to get some rest and take it easy. Use ibuprofen and acetaminophen as needed for discomfort. Drink lot of fluids. Continue Paxlovid. Stay in touch with your regular doctor for additional advice as needed. Return to the emergency room if significantly worse. Prescriptions: No Action cyclobenzaprine 10 mg tablet 10 mg PO Q8H Qty: 14 0RF acetaminophen [Tylenol Extra Strength] 500 mg tablet 1,000 mg PO QID PRN (Reason: fever or pain) Qty: 14 0RF ondansetron HCl 4 mg tablet 4 mg PO Q8H Qty: 14 0RF pregabalin [Lyrica] 150 mg capsule 150 mg PO BID ibuprofen 800 mg tablet 800 mg PO Q8H PRN acetaminophen [Tylenol Extra Strength] 500 mg tablet 500 mg PO Q6H PRN fluticasone propion-salmeterol [Advair Diskus] 100-50 mcg/dose blister with device 1 inh inhalation Q12H omeprazole 20 mg capsule,delayed release(DR/EC) 20 mg PO DAILY fluticasone propionate [Allergy Relief (fluticasone)] 50 mcg/actuation spray,suspension 2 spray intranasal DAILY Rx Instructions: administer into each nostril All Day Allergy (cetirizine) 10 mg capsule 10 mg PO DAILY sertraline 100 mg tablet 100 mg PO DAILY cholecalciferol (vitamin D3) 25 mcg (1,000 unit) capsule 25 mcg PO DAILY ferrous sulfate 325 mg (65 mg iron) tablet 325 mg PO DAILY Interventions: ED Discharge Assessment Last Done: 03/26/23 04:21 Discharge Date/Time: 03/26/23 04:24
[2023-03-26 02:46] LABS: MANUAL DIFF FLAG NO
[2023-03-26 02:51] LABS: Basophils Percent Auto 0.3 % (0-2); Eosinophils Absolute Auto 0.1 X10*3/uL (0.0-0.4); Eosinophils Percent Auto 1.4 % (0-4); Hemoglobin 9.9 g/dl (12.0-16.0); Imm Gran Abs Auto 0.01 X10*3/uL (0.00-0.03); Imm Gran Pct Auto 0.2 % (0.0-0.4); Lymphocytes Absolute Auto 1.6 X10*3/uL (1.2-4.9); Lymphocytes Percent Auto 24.2 % (20-40); Mean Corpuscular Volume 66.7 fL (80.0-98.0); Mean Platelet Volume 10.7 fL (9.4-12.3); Monocytes Absolute Auto 0.4 X10*3/uL (0.1-1.2); Monocytes Percent Auto 5.5 % (2-11); Neutrophils Absolute Auto 4.5 x10*3/uL (2.0-8.3); Neutrophils Percent Auto 68.4 % (45-73); Platelet Count 184 X10*3/uL (160-400); Red Blood Count 4.95 X10*6/uL (4.20-5.50); White Blood Count 6.5 X10*3/uL (4.8-10.8)
[2023-03-26 03:10] LABS: Troponin-I High Sensitivity < 2.7 ng/L (<3.5-17.0)
[2023-03-26 03:13] LABS: Alanine Aminotransferase 15 U/L (0-31); Albumin Level 3.8 g/dL (3.5-5.0); Alkaline Phosphatase 66 U/L (39-117); Anion Gap 13 (12-20); Aspartate Amino Transferase 13 U/L (5-31); Bilirubin Direct < 0.2 mg/dL (0.0-0.5); Bilirubin Total 0.2 mg/dL (0.0-1.0); Blood Urea Nitrogen 13 mg/dL (9-16); C Reactive Protein 0.52 mg/dL (< or = 0.50); Calcium 8.5 mg/dL (8.4-10.2); Carbon Dioxide 24 mmol/L (22-29); Chloride 107 mmol/L (96-108); Creatinine Clr Calc Pharmacy 103.4; Estimated Glomerular Filt Rate > 60; Glucose Random 104 mg/dL (60-115); HCG Quantitative < 2 mIU/mL; Potassium 3.7 mmol/L (3.3-5.1); Sodium 140 mmol/L (135-145); Total Protein 7.1 g/dL (6.5-8.0)
[2023-03-26 03:16] LABS: D Dimer High Sensitivity < 150 NG/ML
[2023-03-26] MEDS: Acetaminophen 325 MG TABLET 975 MG PO (03:59)
[2023-03-26] MEDS: Ibuprofen 600 MG TABLET PO (03:59)
[2023-03-26 04:00] VITALS: BP 105/64; PULSE 60; RESP 16; O2SAT 98
== END 2023-03-26 04:24 | disposition home or self-care (01) ==
PROVIDERS: Emergency Provider Emergency Medicine
DX: U07.1 COVID-19 (principal); R42 Dizziness and giddiness; R07.9 Chest pain, unspecified
CPT/HCPCS: 36415; 71045; 80048; 80076; 84484; 84702; 85025; 85379; 86140; 99284